=== PATIENT | female | born 1960 ===

== ENCOUNTER 2025-01-27 09:31 | Outpatient (OUT) | payer MEDICARE, BC, SELFPAY ==
--- OUTSIDE RECORDS SUMMARY | 2025-01-27 09:34 | XMS_ITS | Clinical Summary ---
Author Organization [facility] Address [address], [address] [place] [address] Care Team Providers Care Agricultural Crop Farm Manager Name Role Phone Geetha Bonner PA-C Primary Care Provider Allergies Active AllergyReactionsCriticalityNoted DateCommentsBee Venom12/13/2014 AhrehcvuvoBapikppMjd83/24/2017 methylprednisone Wasp Venom12/13/2014 Medications MedicationSigDispense QuantityRefillsLast FilledStart DateEnd DateStatus Multiple Vitamin (MULTI-VITAMIN DAILY PO) Take 1 tablet by mouth dailyActive EPINEPHrine (EPIPEN) 0.3 MG/0.3ML SOAJ injection inject as directed for allergic reaction 2 each 5Active Active Problems ProblemNoted DateDiagnosed DateKnee injury, initial urwrskuvc09/24/2024Seasonal allergic uwmnbsur25/29/2022Essential yspmeebenird19/21/2022llergy or toxic reaction to venom12/13/2014Fibroepithelial polyp12/13/20148950Hvgvwa29/03/2015 Sciatic /03/2015Skin tag12/13/2014 Resolved Problems ProblemNoted DateDiagnosed DateResolved OpnfDsbyqwd71dverse drug nrwwbpwu26FatigueInfluenza12/13/2014 02/03/20242002Bchoffv43 Immunizations ImmunizationAdministration DatesNext DueTd vaccine (adult)03/16/2013Td, unspecified tsnuacvmpsc06/04/2014 Family History Medical HistoryRelationNameCommentsHypertensionBrother 1HypertensionBrother 2 CancerFatherBehind eye socket, melanomaHypertensionFatherOtherFatherparkinson's DiabetesMotherHypertensionMotherOtherMotherkidney failureDiabetesOtherHigh Blood PressureOtherRelationNameStatusCommentsBrother 1Brother 2AliveFatherDeceased MotherDeceasedOther Social History Tobacco UseTypesPacks/DayYears UsedDateSmoking Tobacco: TbxljkLpoeesgzmo630 06/04/1979 - 06/04/1999Smokeless Tobacco: Never Tobacco Cessation:Counseling Given: Not Answered Alcohol UseStandard Drinks/WeekCommentsNo0 (1 standard drink = 0.6 oz pure alcohol)Overall Financial Resource Strain (CARDIA)AnswerDate RecordedHow hard is it for you to pay for the very basics like food, housing, medical care, and heating?Not hard at all02/03/2024HQ-2AnswerDate RecordedPHQ-9 Total Score0 02/03/2024Hunger Vital SignAnswerDate RecordedWithin the past 12 months, you worried that your food would run out before you got the money to buymore.Never true02/03/2024Within the past 12 months, the food you bought just didn't last and you didn't have money to get more.Never true02/03/2024RAPARE - TransportationAnswerDate RecordedLack of Transportation (Medical)Not on file 02/03/2024In the past 12 months, has lack of transportation kept you from meetings, work, or from getting things needed for daily living?No02/03/2024 Housing Stability Vital SignAnswerDate RecordedUnable to Pay for Housing in the Last YearNot on file02/03/2024Number of Times Moved in the Last YearNot on file 02/03/2024t any time in the past 12 months, were you homeless or living in a alf (including now)?No02/03/2024Food InsecurityAnswerDate RecordedWithin the past 12 months, you worried that your food would run out before you got the money to buymore.Within the past 12 months, the food you bought just didn't last and you didn't have money to get more.regnantCommentsNo Sex and Gender InformationValueDate RecordedSex Assigned at BirthFemidd[facility] state hospitale 04/09/2024 12:39 PM ESTLegal UmoCtipcy11/10/2013 9:16 AM ESTGender IdentityNot on fileSexual OrientationNot on file Last Filed Vital Signs Vital SignReadingTime TakenCommentsBlood Medvjcje802/8202/03/2024 11:05 AM EST Cassv88852/24/2024 11:05 AM WOAGftdhimkeoi83.8 ??C (98.3 ??F)04/29/2018 3:14 PM EDTRespiratory Lxbb936304/29/2018 3:14 PM EDTOxygen Pfgghsqivt49%02/03/2024 10:06 AM ESTInhaled Oxygen Concentration--Fccldc02.7 kg (189 lb)02/03/2024 10:06 AM QLXBmqmhr901.6 cm (5' 4 )02/03/2024 10:06 AM ESTBody Mass Index32.44104/05/2023 10:06 AM EST Plan of Treatment Health MaintenanceDue DateLast DoneCommentsHIV fxpmnv5907/08/1974Hepatitis C ldjqqq9307/08/19772267Wmmxahcdxeq23/29/2005FIT/FOBT: Average risk07/08/2004 Sigmoidoscopy/CT rlzxcjigqwsv67/29/2005Pneumococcal 50+ years Vaccine (1 of 1 - PCV)07/08/2009Shingles vaccine (1 of 2)07/08/2009DTaP/Tdap/Td vaccine (1 - Tdap) , 03/16/2013DEXA (modify frequency per FRAX score)07/08/2014 Flu vaccine (#1)5COVID-19 Vaccine (3 - season)2024 11/15/2020, 1Breast cancer aisvuj74/, 05/11/2020, 07/13/2018, Additional history existsColorectal Cancer Nhkmls2801/24/2025Fecal-DNA (Cologuard): Average risk512/2Depression Nyefay6902/02/2025 02/03/2024, 4Diabetes wmjndg778004/05/2024, 04/05/2024, 01/30/2022, Additional history xseguiIojfvc45, 10/20/2014 Respiratory Syncytial Virus (RSV) or age 60 yrs+ (1 - 1-dose 75+ series)07/08/2034Hepatitis A vaccineAged OutNo longer eligible based on patient's age to complete this topicHepatitis B vaccineAged OutNo longer eligible based on patient's age to complete this topicHib vaccineAged OutNo longer eligible based on patient's age to complete this topicMeningococcal (ACWY) vaccineAged OutNo longer eligible based on patient's age to complete this topicMeningococcal B vaccineAged OutNo longer eligible based on patient's age to complete this topicPolio vaccineAged OutNo longer eligible based on patient's age to complete this topic Procedures Procedure NamePriorityDate/TimeAssociated DiagnosisCommentsCOMPREHENSIVE METABOLIC PANEL, SXGGPTBZdhebge55/24/2025 9:03 AM EST Essential hypertension Health care maintenance Obesity (BMI 30-39.9) LIPID IYJTNToctpdh72/24/2025 9:03 AM EST Health care maintenance KATEY VERNA DIGITAL SCREEN SELF REFERRAL W OR WO CAD GGDVENUQDIwquoyw29/18/2023 5:28 PM EDT Visit for screening mammogram FECAL DNA COLORECTAL CANCER SCREENING (COLOGUARD)Fsfmlty8201/24/2022 12:22 PM EST Colon cancer screening from Last 3 Months or Most Recently Relevant to Health Maintenance Results * (ABNORMAL) Comprehensive Metabolic Panel, Fasting (04/05/2024 9:03 AM EST) ComponentValueRef RangeTest MethodAnalysis TimePerformed AtPathologist CxfxtaumwJfgpxy985092 - 145 mmol/LMERCY LABORATORIESPotassium4.33.7 - 5.3 mmol/LMERCY UUZAETRWHGMVUlaaobqi56039 - 107 mmol/LMERCY WMSYLMVNCQOIPE91462 - 31 mmol/LMERCY LABORATORIESAnion Vve005 - 16 mmol/LMERCY LABORATORIESGlucose, Siuntqv101(H)74 - 99 mg/dLMERCY YUSHTSHCLDQYCXG519 - 23 mg/dLMERCY LABORATORIESCreatinine0.70.6 - 0.9 mg/dLMERCY LABORATORIESEst, Glom Filt Rate >90>60 mL/min/1.04a0NTRFN LABORATORIESComment: These results are not intended for use in patients <18 years of age. eGFR results are calculated without a race factor using the 2020 CKD-EPI equation. Careful clinical correlation is recommended, particularly when comparing to results calculated using previous equations. The CKD-EPI equation is less accurate in patients with extremes of muscle mass, extra-renal metabolism of creatine, excessive creatine ingestion, or following therapy that affects renal tubular secretion. Calcium9.78.6 - 10.4 mg/dLMERCY LABORATORIESTotal Protein6.76.6 - 8.7 g/dLMERCY LABORATORIESAlbumin4.43.5 - 5.2 g/dLMERCY LABORATORIESAlbumin/Globulin Ratio1.9 1.0 - 2.5MERCY LABORATORIESTotal Bilirubin0.60.0 - 1.2 mg/dLMERCY LABORATORIES Alkaline Zxvyelhllxw4971 - 104 U/LMERCY STCVSQLAWGFFBWY0098 - 35 U/LMERCY ATMFMCRXOGTKHEI9897 - 35 U/LMERCY LABORATORIESSpecimen (Source)Anatomical Location / LateralityCollection Method / VolumeCollection TimeReceived TimeBlood BLOOD SPECIMEN / Wrljojc9904/05/2024 9:03 AM EST04/05/2024 10:52 AM EST Narrative Authorizing ProviderResult TypeResult StatusElizabeth Pia KUHN-CCHEMISTRY ORDERABLESFinal ResultPerforming OrganizationAddressCity/State/ZIP CodePhone Number [place] [address] [address] [phone] * (ABNORMAL) Lipid Panel (04/05/2024 9:03 AM EST)ComponentValueRef RangeTest MethodAnalysis TimePerformed AtPathologist SignatureCholesterol, Pabla453(H)0 - 199 mg/dLMERCY LABORATORIESComment: Cholesterol Guidelines: <200 Desirable 200-240 ??Borderline >240 Undesirable HDL66>40 mg/dLMERCY LABORATORIESComment: HDL Guidelines: <40 Undesirable 40-59 ?Borderline >59 Desirable LDL Ihetjyjaudo255(H)0 - 100 mg/dLMERCY LABORATORIESComment: LDL Guidelines: <100 Desirable 100-129 ?? Near to/above Desirable 130-159 ?? Borderline >159 Undesirable Direct (measured) LDL and calculated LDL are not interchangeable tests. Chol/HDL Ratio3.4MERCY FBSTLJCNKEODEilazdfcwutio99<150 mg/dLMERCY LABORATORIES Comment: Triglyceride Guidelines: <150 Desirable 150-199 ??Borderline 200-499 ??High >499 Very high Based on AHA Guidelines for fasting triglyceride, November 2011. XHJV319 - 30 mg/dLMERCY LABORATORIESSpecimen (Source)Anatomical Location / LateralityCollection Method / VolumeCollection TimeReceived TimeBloodBLOOD SPECIMEN / Dydgcav1904/05/2024 9:03 AM EST04/05/2024 10:52 AM EST Narrative Authorizing ProviderResult TypeResult StatusElizabeth Pia KUHN-CCHEMISTRY ORDERABLESFinal ResultPerforming OrganizationAddressCity/State/ZIP CodePhone Number [facility] [address] [place] [address], [facility] [phone] * [facility] DIGITAL SCREEN SELF REFERRAL W OR WO CAD BILATERAL (10/28/2022 5:28 PM EDT)Anatomical RegionLateralityModalityBreastBilateralMammographySpecimen (Source)Anatomical Location / LateralityCollection Method / VolumeCollection TimeReceived Time10/28/2022 5:32 PM EDT Impressions 10/29/2022 4:20 PM EDT No evidence of malignancy. Advise annual screening mammography. BI-RADS 1 BIRADS: BIRADS - CATEGORY 1 Negative, no evidence of malignancy. ??Normal interval follow-up is recommended in 12 months. OVERALL ASSESSMENT - NEGATIVE A letter of notification will be sent to the patient regarding the results. The [employer] recommends annual mammograms for women 40 years and older. Narrative 10/29/2022 4:20 PM EDT EXAMINATION: SCREENING DIGITAL BILATERAL MAMMOGRAM WITH TOMOSYNTHESIS, 10/28/2022 TECHNIQUE: Screening mammography of the bilateral breasts was performed with tomosynthesis. ??2D standard and 3D tomosynthesis combination imaging performed through both breasts in the MLO and CC projection. ??Computer aided detection was utilized in the interpretation of this exam. COMPARISON: 11 May 2020; 13 July 2018 HISTORY: Screening. Negative family history of breast cancer. ??No hormonal replacement therapy or breast interventions. FINDINGS: Breasts are composed of scattered fibroglandular density. ??No skin thickening, nipple contour changes, suspicious calcifications, suspicious masses, areas of architectural distortion or significant interval changes are noted. Authorizing ProviderResult TypeResult StatusElizabeth Pia [facility]STAUN[facility] STATE HOSPITALDiamond MAMMOGRAPHY ORDERABLESFinal Result * Fecal DNA Colorectal cancer screening (Cologuard) (01/24/2022 12:22 PM EST) ComponentValueRef RangeTest MethodAnalysis TimePerformed AtPathologist SignatureFIT-DNA (Cologuard)ZboefckgQryvzlnk81/23/2022 1:56 PM [employer] (CLIA #:[id number])Comment: NEGATIVE TEST RESULT. A negative Cologuard result indicates a low likelihood that a colorectal cancer (CRC) or advanced adenoma (adenomatous polyps with more advanced pre-malignant features) ??is present. The chance that a person with a negative Cologuard test has a colorectal cancer is less than 1in 1500 (negative predictive value >99.9%) or has an advanced adenoma is less than 5.3% (negative predictive value 94.7%). These data are based on a prospective cross-sectional study of 10,000individuals at average risk for colorectal cancer who were screened with both Cologuard and colonoscopy. (Selina Calderón al, N Engl J Med 2014;370(14):4487-0921) The normal value (reference range) for this assay is negative. COLOGUARD RE-SCREENING RECOMMENDATION: Periodic colorectal cancer screening is an important part ofpreventive healthcare for asymptomatic individuals at average risk for colorectal cancer. ??Following a negative Cologuard result, the [employer] [employer] and U.S. Multi-Society Task Force screening guidelines recommend a Cologuard re-screening interval of 3 years. References: [employer] [employer] Guideline for Colorectal Cancer Screening: https://www.cancer.or g/cancer/otfyk-dmctci-linday/irbewczeb-eerbzqlkr-ukbvnmr/acs-recommendations.htm l.; Romeo WOODS, Radha CR, Chad ÁlvarezK, Colorectal Cancer Screening: Recommendations for Physicians and Patients from the U.S. Multi-Society Task Force on Colorectal Cancer Screening , Am J Gastroenterology 2017; 112:3054-4303. TEST DESCRIPTION: Composite algorithmic analysis of stool DNA-biomarkers with hemoglobin immunoassay. ?? Quantitative values of individual biomarkers are not reportable and are not associated with individual biomarker result reference ranges. Cologuard is intended for colorectal cancer screening ofadults of either sex, 45 years or older, who are at average-risk for colorectal cancer (CRC). Cologuard has been approved for use by the U.S. FDA. The performance of Cologuard was established in a cross sectional study of average-risk adults aged 50-84. Cologuard performance in patients ages 45 to 49 years was estimated by sub-group analysis of near-age groups. Colonoscopies performed for a positive result may find as the most clinically significant lesion: colorectal cancer [4.0%], advanced adenoma (including sessile serrated polyps greater than or equal to 1cm diameter) [20%] or non- advanced adenoma [31%]; or no colorectal neoplasia [45%]. These estimates are derived from a prospective cross-sectional screening study of 10,000 individuals at average risk for colorectal cancer who were screened with both Cologuard and colonoscopy. (Selina Calderón al, N Engl J Med 2014;370(14):0285-1120.) Cologuard may produce a false negative or false positive result (no colorectal cancer or precancerous polyp present at colonoscopy follow up). A negative Cologuard test result does not guarantee the absence of CRC or advanced adenoma (pre-cancer). The current Cologuard screening interval is every 3 years. ([place] [employer] and U.S. Multi-Society Task Force). Cologuard performance data in a 10,000 patient pivotal study using colonoscopy as the reference method can be accessed at the following location: www.[employer]uling.[employer]/results. Additional description of the Cologuard test process, warnings and precautions can be found at www.Bevyrd.com. Specimen (Source)Anatomical Location / LateralityCollection Method / Volume Collection TimeReceived TimeFeces (substance)STOOL SPECIMEN / Uxlsimu7801/24/2022 12:22 PM EST01/25/2022 10:44 AM EST Narrative Authorizing ProviderResult TypeResult StatusElibev KUHN-CMICROBIOLOGY - GENERAL ORDERABLESFinal ResultPerforming OrganizationAddressCity/State/ZIP CodePhone Number [employer] (CLIA #:[id number]) [address] [place] [address], [facility] [phone] from Last 3 Months or Most Recently Relevant to Health Maintenance Insurance * Guarantor: Mery Ray TypeRelation to PatientDate of BirthPhone Billing AddressPersonal/YftahnUkfp77/29/1961 [address] [address] * Guarantor: Mery Ray TypeRelation to PatientDate of BirthPhone Billing AddressPersonal/HczwduMzhb33/29/1961 [address] [address] Care Teams Team MemberRelationshipSpecialtyStart DateEnd Date Geetha Bonner PA-C [address] [place] [address] PCP - GeneralPhysician Oikkrdcig78/6/15
--- OUTSIDE RECORDS SUMMARY | 2025-01-27 09:34 | XMS_ITS | Patient Health Record ---
Author Organization [facility] [place] Address [address] [place] [address] Care Team Providers Care Cytology Supervisor Name Role Phone Geetha Reyes Primary Care Provider Unava ilable Allergies Allergen (clinical drug ingredient) Drug/Non Drug Allergy documented on EMR Reaction Allergy Type Onset Date Status prednisolone PrednisoLONE Unknown Drug Allergy Active Reason For Referral No Information Medications Medication SIG (Take, Route, Frequency, Duration) Notes Start Date End Date Status ZyrTEC Allergy 10 mg 1 DAILY Active Immunizations Vaccine Route Administration Date Status Comme nts Td, Adult, absorbed Unknown 03/16/2013 Pending 2013 Plan Of Treatment No Information Insurance Providers Payer Name Payer Address Payer Phone Subscriber Number Group Number Insured Name Patient Relationship to Insured Coverage Start Date Coverage End Date [employer] [address] [place] [phone] [id number] Mery Ray Self - patient is the insured 3 Medical (General) History Surgical History Surgery Date(Month/Year) Excision lipoma right posterior arm 04/29 18 Excision benign lesion right thigh Excision benign lesion left back 05/2016 Miniscus repair right knee Hysterectomy
--- OUTSIDE RECORDS SUMMARY | 2025-01-27 09:34 | XMS_ITS | Clinical Summary ---
Author Organization [facility] Address [id number] [address] [place] [address] Care Team Providers Care Payment Analyst Name Role Phone Geetha Bonner Primary Care Provider [phone] Allergies Active AllergyReactionsCriticalityNoted DateCommentsBee Venom Protein (Honey Bee)RiviskdxsslVcip52/03/8957JcqkhbgzlbannlzovdPdwukmpYnb76/11/2023Prednisolone 02/20/2022 Other reaction(s): Unknown OcjaessrvmIbvobauKwg44/24/2017 methylprednisone Medications MedicationSigDispense QuantityRefillsLast FilledStart DateEnd DateStatus metoprolol succinate XL (TOPROL XL) 50 mg 24 hr tablet Indications:hypertensionIndications: high blood pressure.02/18/2022ctive estradioL (ESTRACE) 0.01 % (0.1 mg/gram) vaginal cream Insert 1 g into the vagina in the morning. 42.5 g ctive Additional Information Patient not taking.Reported on 03/31/2024 euumvboz-zgaz-CX-calcium &mins (THERAGRAN-M) 9 mg iron-400 mcg tablet Take 1 tablet by mouth in the morning.Active glucosam/sheree-msm1/C/hao/bosw (OSTEO BI-FLEX TRIPLE STRENGTH ORAL) Take 1 tablet by mouth.Active Active Problems No known active problems Family History Medical HistoryRelationNameCommentsHigh CholesterolBrother 1BobHypertension Brother 1BobNo Known ProblemsBrother 2GaryNo Known ProblemsBrother 3Doug HypertensionBrother 4JeffSeizuresBrother 4JeffBrain cancerFatherHigh Cholesterol FatherParkinsonismFatherDiabetesMotherHigh CholesterolMotherHypertensionMotherNo Known ProblemsSisterMarthaBreast cancerNeg HxColon cancerNeg HxOvarian cancerNeg HxUterine cancerNeg HxRelationNameStatusCommentsBrother 1BobBrother 2GaryBrother 3DougBrother 4JeffFatherDeceasedMotherDeceasedSisterMartha Social History Tobacco UseTypesPacks/DayYears UsedDateSmoking Tobacco: WweqozVpmwutghws8Lcyk: 2000Smokeless Tobacco: Never Tobacco Cessation:Counseling Given: Not Answered Alcohol UseStandard Drinks/WeekCommentsNot Currently0 (1 standard drink = 0.6 oz pure alcohol)ChildcareAnswerDate OulmavaeQocqvhmzdHtiezaf87/10/2019Employment AnswerDate WyfdlfocPcynxpiukyRvdqjhv07/10/2019Hunger ScreeningAnswerDate RecordedWithin the past 12 months we worried whether our food would run out before we got money to buy more.Never True03/31/2024Within the past 12 months the food we bought just didn't last and we didn't have money to get more.Never True03/31/2024CommentsNoSex and Gender InformationValueDate RecordedSex Assigned at BirthNot on fileLegal IzuIaommv13/04/2015 1:54 PM EDTGender Identity Not on fileSexual OrientationNot on file Last Filed Vital Signs Vital SignReadingTime TakenCommentsBlood Neaysxgh234/8401/12/2022 8:37 AM EST Pulse--Temperature--Respiratory Rate--Oxygen Saturation--Inhaled Oxygen Concentration--Glszdr33.5 kg (181 lb 12.8 oz)03/31/2024 2:27 PM LRYYepowp144 cm (5' 3 )03/31/2024 2:27 PM ESTBody Mass Index32. 2:27 PM EST Plan of Treatment Health MaintenanceDue DateLast DoneCommentsDepression Hoyiulrww41/29/1972Adult BMI Follow Up Plan07/08/1977Zoster (Shingles) Vaccine (1 of 2)07/08/2009 DTaP,Tdap and Td Vaccines (1 - Tdap)Fall Risk Screening 5COVID-19 Vaccine ( season)/07/2020, 10/25/2020 Influenza Cjvhurn8410/11/2024dult BMI Dkerxyknb93Tobacco Xelxmblst52RSV ( or age 60+ yrs) (1 - 1-dose 75+ series)07/08/2034Pap ZrocvNwlzzbrokskv53/11/2023, 02/20/2022 Medical Devices Not on file Procedures Procedure NamePriorityDate/TimeAssociated DiagnosisCommentsPAP SMEARRoutine 02/20/2022 4:54 AM EST Screening for cervical cancer from Last 3 Months or Most Recently Relevant to Health Maintenance Results * Pap Smear (02/20/2022 4:54 AM EST)Specimen (Source)Anatomical Location / LateralityCollection Method / VolumeCollection TimeReceived Time02/20/2022 4:54 AM EST02/20/2022 4:55 AM EST Narrative [facility] - 02/21/2022 10:36 AM EST [facility] ? [address] [place] [address] ? [place] [address] ? Gynecologic Cytology Consultation ? Patient Name:MERY RAY:1960 (Age: 61)Gender:FTaken:02/20/2022Reported:02/21/2022hysician(s):Roxane Sparrow CNM ([phone])Copy To: Rec. #:[id number]: [id number] Final Cytologic Interpretation ThinPrep Pap Test (Vaginal): Satisfactory for evaluation. NEGATIVE FOR INTRAEPITHELIAL LESION OR MALIGNANCY. The cytologic changes of atrophy are noted. ?? pmc/02/21/2022 Interpretation performed at [facility], [address] [place], [place] [address], [place] [address], License number: [id number]. Electronically Signed Out By ?MUNIR Rowland(ASCP) Date of Last Menstrual Period: ? (None Given) Other Clinical Conditions: Menopausal Z12.4 Screening for malignant neoplasm of cervix Source of Specimen ??ThinPrep Pap Test (Vaginal) ? Thin Prep Pap (ADDING MACHINE SERVICER) Fee Code(s): ?? G0145 Authorizing ProviderResult TypeResult StatusChelsdianne Sparrow MORTGAGE LOAN PROCESSING CLERK-CNM PATHOLOGY/CYTOLOGY ORDERABLESFinal ResultPerforming OrganizationAddress City/State/ZIP CodePhone Number [facility] from Last 3 Months or Most Recently Relevant to Health Maintenance Insurance Care Teams Team MemberRelationshipSpecialtyStart [place] [address] [place] [address] PCP - GeneralPhysician Ygeitevvc60/16/24
--- OUTSIDE RECORDS SUMMARY | 2025-01-27 09:34 | XMS_ITS | Clinical Summary ---
Author Organization [facility] Address [address] [place] [address] Care Team Providers Care Employment Agency Manager Name Role Phone Unavailable Primary Care Provider Unavailabl e Social History Tobacco UseTypesPacks/DayYears UsedDateSmoking Tobacco: Never Assessed CommentsUnknownSex and Gender InformationValueDate RecordedSex Assigned at Not on fileLegal OlfZcxznl17/15/2023 7:40 PM EDTGender IdentityNot on fileSexual OrientationNot on file Plan of Treatment DateTypeDepartmentCare Team (Latest Contact Info)Gmneowzcxkr98/30/2025 9:15 AM ESTOffice Visit [facility] [address] [place] [phone] Thomas Bagley, DPDede [address] [place] [address] Insurance
--- NOTE | 2025-01-27 09:36 | XR_ITS ---
The [address] [address] Patient Name: ARNOLDO PROCTOR MRN: [id number] date: 1960 Sex: F Assigned Patient Location: [facility] Current Patient Location: [facility] Accession/Order Number: [id number] Exam Date: 01/27/2025 09:38 Report Date: 01/27/2025 10:26 At the request of: SIRENA KIMBALL DPDede Procedure: XR foot LT min 3V LEFT FOOT - 3 views CLINICAL DATA: Left foot pain. COMPARISON: None Weightbearing AP, lateral and oblique views were obtained. There is no evidence of fracture or dislocation. There is a tiny plantar calcaneal spur. There are no significant soft tissue abnormalities. XR/XR foot LT min 3V IMPRESSION: NO ACUTE BONY FINDINGS. Impression dictated by: Susan Gerard M.D. 01/27/2025 10:26 AM Dictation Location: [place] [address] Electronically authenticated by: [id number] Y Date: 01/27/2025 10:26
== END 2025-01-27 09:32 | disposition home or self-care (01) ==
LOC: RAD 09:31
PROVIDERS: PCP Physician Assistant Medical; Visit Provider Podiatrist Foot & Ankle Surgery
DX: M79.672 Pain in left foot (principal)
CPT/HCPCS: 73630